=== PATIENT | female | born 1990 | race Caucasian/White ===

== ENCOUNTER 2021-02-01 07:52 | Emergency (ER) | payer OTHER ==
[~2021-02-01] VITALS: Ht 154.9 cm; Wt 63.6 kg
[2021-02-01 07:53] VITALS: BP 119/75
[2021-02-01] MEDS ORDERED: ACETAMINOPHEN/CODEINE 300-30 MG TABLET PO ONE (08:45)
[2021-02-01] MEDS ORDERED: PENICILLIN V POTASSIUM 500 MG TABLET PO ONE (08:45)
== END 2021-02-01 09:12 | disposition home or self-care (01) ==
LOC: EMS 07:57
DX: K04.7 Periapical abscess without sinus (principal); F17.210 Nicotine dependence, cigarettes, uncomplicated
CPT/HCPCS: 99283